=== PATIENT | male | born 1990 | race Caucasian/White ===

== ENCOUNTER 2016-10-29 21:07 | Emergency (ER) | payer OTHER ==
[~2016-10-29 21:07] MED LIST: IBUPROFEN600 MG PO; NORCO1 TA1 PO
--- NOTE | 2016-10-30 00:05 | ED NURSING NOTES ---
Clinical Report - Nurses [facility] [address] [place] [address] 10/29/2016 21:08 Patient: KIMBERLY KRAUS TRIAGE Triage time 21:Oct 29 2016. Acuity: LEVEL 4. Chief Complaint: INJURY TO RIGHT HAND. Alert. No acute distress. SEPSIS SCREEN: Sepsis Screen. Negative (no infection suspected/documented). LETTY COMA SCORE: [place] Coma Scale: 15- eyes open spontaneously (4); best verbal response- oriented x 4 (5); best motor response- obeys commands (6). --21:16 Amber Dan R.N. 21:11 10/29/16. BP: 139/70. HR: 97. RR: 17. O2 saturation: 100%. Temp: 99 F. Pain level now: 09/30. --21:16 Amber Dan R.N. Weight: 65.7 kg stated. Height/Length: 68 inches Per Patient. BMI: 22. --21:13 Amber Dan R.N. Medications None. --21:14 Amber Dan R.N. Allergies Penicillins. --21:14 Amber Dan R.N. History Arrived by private vehicle. Historian: patient. This occurred just prior to arrival. He sustained a laceration (pt while cutting wood with hatchet missed the wood and cut his right index finger). Treatment FILAMENT CUTTER: None. PAST MEDICAL HX: Tetanus status: up-to-date. Immunizations: up-to-date. SOCIAL HX: Heavy tobacco smoker (cigarette)- 1 pack per day. Alcohol use; consumes beer occasionally and liquor occasionally. History of drug use: marijuana. No infectious disease exposure. ABUSE ASSESSMENT: No report of abuse. SELF HARM ASSESSMENT: A self harm assessment was performed. The patient answered "no" to the question "Have you recently felt down, depressed, or hopeless?", "Have you noticed less interest or pleasure in doing things?", "Do you have thoughts of harming or killing yourself?", "Are you here because you tried to hurt yourself?", "Have you ever tried to hurt yourself before today?", "Have you recently had thoughts about harming or killing others?" and "Do you have any dangerous items in your possession?". FALL RISK ASSESSMENT: Fall risk assessment completed. No fall risk identified. NUTRITIONAL RISK ASSESSMENT: The nutritional risk assessment revealed no deficiencies. FUNCTIONAL ASSESSMENT: Functional assessment: no impairments noted. LEARNING NEEDS ASSESSMENT: The learning needs assessment revealed no barriers. SKIN INTEGRITY ASSESSMENT: Skin integrity risk assessment completed. No skin integrity risk identified. --21:16 Amber Dan R.N. PROBLEMS: Laceration. --21:15 Amber Dan R.N. ADDITIONAL SURGERIES: Left arm arterial repair. --21:15 Amber Dan R.N. Interventions ID band on patient. To treatment room. --21:16 Amber Dan R.N. PHYSICAL ASSESSMENT Ambulatory to room. Patient gowned. GENERAL / NEURO / PSYCH: Oriented X 4. Alert. Appears in no acute distress. EXTREMITIES: Capillary refill is less than 2 seconds in the extremities. Extremity pulses are within normal limits. Neuro-vascular status intact to the extremity. Right index finger: laceration with controlled bleeding. SKIN: Skin is warm and dry. --21:17 Amber Dan R.N. NURSING PROGRESS NOTES Patient identifiers checked. Call light placed in reach. Side rails up x 1. Bed placed in lowest position. Brakes of bed on. Patient waiting for evaluation. --21:18 Amber Dan R.N. ( pt out to nurses station-pt updated on time frame- waiting MD to suture.). --22:53 Amber Dan R.N. Call light placed in reach. Bed placed in lowest position. Brakes of bed on. --22:53 Amber Dan R.N. ( MD at bedside suturing). --23:32 Amber Dan R.N. WOUND REPAIR: Wound repair performed by ED physician. Assisted by one tech. The wound is located on the right index finger. Preparation: suture tray set-up with 2% lidocaine. Wound cleansed per tech with Hibiclens and irrigated with 250 mL sterile saline using a syringe. Procedure: wound repaired with sutures. Post-procedure: no complications, bleeding controlled, neuro-vascular status intact distal to wound and dressing applied. --00:01 Amber Dan R.N. Patient waiting for disposition. --00:02 Amber Dan R.N. DISPOSITION / DISCHARGE The patient left prior to discharge education being provided. The patient was discharged by the physician. ( pts room empty, gown on [facility], pt last seen in room with friend when EDT was dressing wound). --00:11 Amber Dan R.N. Locked/Released at 10/30/2016 0:12 by Amber Dan R.N.
--- NOTE | 2016-10-30 00:05 | ED CLINICAL REPORT ---
Clinical Report - Physicians/Mid Levels [facility] [address] [place] [address] 10/29/2016 21:08 Patient: KIMBERLY KRAUS Time Seen: 21:14. Arrived- By private vehicle. Historian- patient. HISTORY OF PRESENT ILLNESS Chief Complaint: Injury to the right hand and index finger. The injury happened just prior to arrival. The patient sustained a laceration from a sharp edge and blunt force (while cutting wood with hatchet missed the wood and cut his right index finge[place] Patient is experiencing mild pain. No other injury. REVIEW OF SYSTEMS The patient sustained a single laceration to the right hand and right index finger. No swelling, tingling, numbness or weakness. All systems otherwise negative, except as recorded above. PAST HISTORY The patient's dominant hand is the left. Tetanus immunization status is up-to-date. SOCIAL HISTORY Current every day heavy tobacco smoker (cigarette)- 1 pack per day. Alcohol use; consumes beer occasionally and liquor occasionally. History of occasional drug use: marijuana. Residence: [place] his grilfriend he is homeless. FAMILY HISTORY No significant family medical history. ADDITIONAL NOTES The nursing notes have been reviewed. PHYSICAL EXAM Vital Signs: 10/29/2016 21:11 BP: 139/70. HR: 97. RR: 17. O2 saturation: 100%. Temp: 99 F. Pain level now: 4/10. Have been reviewed. Appearance: Alert. Head: Head atraumatic. Eyes: Pupils equal, round and reactive to light. ENT: Pharynx normal. Neck: Normal inspection. Neck supple. CVS: Normal heart rate and rhythm. Heart sounds normal. Respiratory: No respiratory distress. Breath sounds normal. Abdomen: No visible injury. Soft and nontender. Bowel sounds normal. No organomegaly. No mass. Back: Normal inspection. Skin: Skin warm and dry. Extremities: Right index finger: subcutaneous 5.0 cm laceration of the proximal phalanx- SEE LACERATION PROCEDURE NOTE #1. Neurovascular intact distally. No limitation in movement. Extremities otherwise negative. Neuro, Vascular and Tendons: Vascular status intact. Sensation intact. Motor intact. Tendon function intact. PROGRESS AND PROCEDURES Laceration Repair: Location: right hand and right index finger. Time-out completed immediately before the procedure. Length: 5.0cm. Complexity: simple (local anesthesia used and sutured). Wound depth/shape- flap-like. Wound is clean. Distal neuro/vascular/tendon status normal. Local anesthesia provided using 2% lidocaine no epi. Prepped with Betadine and chlorhexidine. Wound explored and cleansed extensively. Closure of superficial layer: interrupted 4-0 nylon (12 sutures). Post-procedure: he is stable and there are no complications. Bleeding is controlled and neuro-vascular status is intact distal to the wound. Dressing applied. Tetanus immunization up-to-date. Course of Care: Patient is stable. Patient/family counseled. Old medical records reviewed. Disposition: Discharged. Condition: stable. CLINICAL IMPRESSION Single deep laceration to the right hand. INSTRUCTIONS Protect wound and keep wound area clean. Change dressing twice daily. You may wash wounds briefly, then dry. Apply neosporin twice daily. Sutures/bill should be removed in ten days. Limit use of your hand. Warnings: COMPLICATIONS: Complications from this condition include: possible infection, possible foreign body remaining in the wound, possible injury to a nerve, possible injury to a tendon and possible injury to a ligament. Future problems may include infection, scarring, loss of function, pain and deformity. INFECTION: Watch for signs of infection (increasing heat and redness, pus-like drainage, swelling, or increased pain). Return or see your doctor if these signs occur. It is important to follow up with a physician for further evaluation and treatment. GENERAL WARNINGS: Return or contact your physician immediately if your condition worsens or changes unexpectedly, if not improving as expected, or if other problems arise. Follow-up: Follow up with your doctor in ten days for suture removal. Understanding of the discharge instructions verbalized by patient. (Electronically signed by Mohsen Cardoza MD 10/30/2016 9:34)
--- NOTE | 2016-10-30 00:05 | ED NURSING NOTES ---
Clinical Report - Nurses [facility] [address] [place] [address] 10/29/2016 21:08 Patient: KIMBERLY KRAUS TRIAGE Triage time 21:Oct 29 2016. Acuity: LEVEL 4. Chief Complaint: INJURY TO RIGHT HAND. Alert. No acute distress. SEPSIS SCREEN: Sepsis Screen. Negative (no infection suspected/documented). LETTY COMA SCORE: [place] Coma Scale: 15- eyes open spontaneously (4); best verbal response- oriented x 4 (5); best motor response- obeys commands (6). --21:16 Amber Dan R.N. 21:11 10/29/16. BP: 139/70. HR: 97. RR: 17. O2 saturation: 100%. Temp: 99 F. Pain level now: 09/30. --21:16 Amber Dan R.N. Weight: 65.7 kg stated. Height/Length: 68 inches Per Patient. BMI: 22. --21:13 Amber Dan R.N. Medications None. --21:14 Amber Dan R.N. Allergies Penicillins. --21:14 Amber Dan R.N. History Arrived by private vehicle. Historian: patient. This occurred just prior to arrival. He sustained a laceration (pt while cutting wood with hatchet missed the wood and cut his right index finger). Treatment BED BUG EXTERMINATOR: None. PAST MEDICAL HX: Tetanus status: up-to-date. Immunizations: up-to-date. SOCIAL HX: Heavy tobacco smoker (cigarette)- 1 pack per day. Alcohol use; consumes beer occasionally and liquor occasionally. History of drug use: marijuana. No infectious disease exposure. ABUSE ASSESSMENT: No report of abuse. SELF HARM ASSESSMENT: A self harm assessment was performed. The patient answered "no" to the question "Have you recently felt down, depressed, or hopeless?", "Have you noticed less interest or pleasure in doing things?", "Do you have thoughts of harming or killing yourself?", "Are you here because you tried to hurt yourself?", "Have you ever tried to hurt yourself before today?", "Have you recently had thoughts about harming or killing others?" and "Do you have any dangerous items in your possession?". FALL RISK ASSESSMENT: Fall risk assessment completed. No fall risk identified. NUTRITIONAL RISK ASSESSMENT: The nutritional risk assessment revealed no deficiencies. FUNCTIONAL ASSESSMENT: Functional assessment: no impairments noted. LEARNING NEEDS ASSESSMENT: The learning needs assessment revealed no barriers. SKIN INTEGRITY ASSESSMENT: Skin integrity risk assessment completed. No skin integrity risk identified. --21:16 Amber Dan R.N. PROBLEMS: Laceration. --21:15 Amber Dan R.N. ADDITIONAL SURGERIES: Left arm arterial repair. --21:15 Amber Dan R.N. Interventions ID band on patient. To treatment room. --21:16 Amber Dan R.N. PHYSICAL ASSESSMENT Ambulatory to room. Patient gowned. GENERAL / NEURO / PSYCH: Oriented X 4. Alert. Appears in no acute distress. EXTREMITIES: Capillary refill is less than 2 seconds in the extremities. Extremity pulses are within normal limits. Neuro-vascular status intact to the extremity. Right index finger: laceration with controlled bleeding. SKIN: Skin is warm and dry. --21:17 Amber Dan R.N. NURSING PROGRESS NOTES Patient identifiers checked. Call light placed in reach. Side rails up x 1. Bed placed in lowest position. Brakes of bed on. Patient waiting for evaluation. --21:18 Amber Dan R.N. ( pt out to nurses station-pt updated on time frame- waiting MD to suture.). --22:53 Amber Dan R.N. Call light placed in reach. Bed placed in lowest position. Brakes of bed on. --22:53 Amber Dan R.N. ( MD at bedside suturing). --23:32 Amber Dan R.N. WOUND REPAIR: Wound repair performed by ED physician. Assisted by one tech. The wound is located on the right index finger. Preparation: suture tray set-up with 2% lidocaine. Wound cleansed per tech with Hibiclens and irrigated with 250 mL sterile saline using a syringe. Procedure: wound repaired with sutures. Post-procedure: no complications, bleeding controlled, neuro-vascular status intact distal to wound and dressing applied. --00:01 Amber Dan R.N. Patient waiting for disposition. --00:02 Amber Dan R.N. DISPOSITION / DISCHARGE The patient left prior to discharge education being provided. The patient was discharged by the physician. ( pts room empty, gown on [facility] [place], pt last seen in room with friend when EDT was dressing wound). --00:11 Amber Dan R.N. Locked/Released at 10/30/2016 0:12 by Amber Dan R.N.
--- NOTE | 2016-10-30 09:34 | ED MAR SUMMARY ---
..... Medication Administration Record [facility] [address] [place], [place] [id number] Patient: KIMBERLY KRAUS Visit ID: [id number] 26y, M Weight: 65.7 kg Height/Length: 68 in BMI: 22 ALLERGIES: Penicillins
--- NOTE | 2016-10-30 09:34 | ED MAR SUMMARY ---
..... Medication Administration Record [facility] [address] [place], [place] [id number] Patient: KIMBERLY KRAUS Visit ID: [id number] 26y, M Weight: 65.7 kg Height/Length: 68 in BMI: 22 ALLERGIES: Penicillins
--- NOTE | 2016-10-30 09:34 | ED MED RECONCILIATION SUMMARY ---
Patient: KIMBERLY KRAUS Medication Reconciliation Report [facility] VisitID: [id number] [address] [place] [place] [address] 26y, M Registration Date/Time: 10/29/2016 Weight: 65.7 kg Height/Length: 68 in. BMI: 22.0 ALLERGIES: Penicillins The patient's Home Medications are listed below: NONE. The source(s) of the original Home Medication information: Not obtained. The following Medications were given to the patient in the Emergency Department: None. The following Medications were prescribed to the patient: None.
--- NOTE | 2016-10-30 09:34 | ED DISCHARGE INSTRUCTIONS ---
Patient: KIMBERLY KRAUS General Instructions [facility] VisitID: [id number] [place] [address] 26y, M Registration Date/Time: 10/29/2016 Single deep laceration to the right hand. INSTRUCTIONS Protect wound and keep wound area clean. Change dressing twice daily. You may wash wounds briefly, then dry. Apply neosporin twice daily. Sutures/bill should be removed in ten days. Limit use of your hand. Warnings: COMPLICATIONS: Complications from this condition include: possible infection, possible foreign body remaining in the wound, possible injury to a nerve, possible injury to a tendon and possible injury to a ligament. Future problems may include infection, scarring, loss of function, pain and deformity. INFECTION: Watch for signs of infection (increasing heat and redness, pus-like drainage, swelling, or increased pain). Return or see your doctor if these signs occur. It is important to follow up with a physician for further evaluation and treatment. GENERAL WARNINGS: Return or contact your physician immediately if your condition worsens or changes unexpectedly, if not improving as expected, or if other problems arise. Follow-up: Follow up with your doctor in ten days for suture removal. Understanding of the discharge instructions verbalized by patient. ADDITIONAL INFORMATION Laceration, Extremity (Sutures, [place], Or Tape) A laceration is a cut through the skin. This will usually require stitches (sutures) or bill if it is deep. Minor cuts may be treated with surgical tape closures. Home care The following guidelines will help you care for your laceration at home: Keep the wound clean and dry. If a bandage was applied and it becomes wet or dirty, replace it. Otherwise, leave it in place for the first 24 hours, then change it once a day or as directed. If stitches or bill were used, clean the wound daily: After removing the bandage, wash the area with soap and water. Use a wet cotton swab to loosen and remove any blood or crust that forms. After cleaning, keep the wound clean and dry. Talk with your doctor before applying any antibiotic ointment to the wound. Reapply the bandage. You may remove the bandage to shower as usual after the first 24 hours, but do not soak the area in water (no swimming) until the stitches or bill are removed. If surgical tape closures were used, keep the area clean and dry. If it becomes wet, blot it dry with a towel. The doctor may prescribe an antibiotic cream or ointment to prevent infection. Do not stop taking this medication until you have finished the prescribed course or the doctor tells you to stop. The doctor may also prescribe medications for pain. Follow the doctors instructions for taking these medications. If you have chronic liver or kidney disease or ever had a stomach ulcer or GI bleeding, talk with your doctor before using these medicines. Follow-up care Follow up with your health care provider. Most skin wounds heal within ten days. However, an infection may sometimes occur despite proper treatment. Therefore, check the wound daily for the signs of infection listed below. Stitches and bill should be removed within 714 days. If surgical tape closures were used, you may remove them after 10 days, if they have not fallen off by then. Notify your doctor if you notice persistent numbness or weakness in the injured extremity. (Note:A radiologist will review any X-rays that were taken. We will notify you of any new findings that may affect your care.) When to seek medical care Get prompt medical attention if any of these occur: Increasing pain in the wound Redness, swelling, or pus coming from the wound Fever of 100.4F (38C) or higher, or as directed by your health care provider If stitches or bill come apart or fall out before your next appointment If the surgical tape closures fall off within seven days, or the wound edges re-open Bleeding not controlled by direct pressure Bandage Change If the bandage becomes wet or dirty, replace it. Otherwise, leave it in place for the first 24 hours. Then once a day: After removing the bandage, wash the area with soap and water. Use a wet cotton swab to loosen and remove any blood or crust that forms on the wound. After cleaning, apply a thin layer of antibiotic ointment or cream. Reapply the bandage. You may shower as usual after the first 24 hours. If the bandage is on an arm or leg, cover it with a plastic bag rubber banded at both ends before showering. No tub baths or swimming until the bandage is removed and the wound healed (at least 7 days). Laceration, Extremity (Sutures, [place], Or Tape) A laceration is a cut through the skin. This will usually require stitches (sutures) or bill if it is deep. Minor cuts may be treated with surgical tape closures. Home care The following guidelines will help you care for your laceration at home: Keep the wound clean and dry. If a bandage was applied and it becomes wet or dirty, replace it. Otherwise, leave it in place for the first 24 hours, then change it once a day or as directed. If stitches or bill were used, clean the wound daily: After removing the bandage, wash the area with soap and water. Use a wet cotton swab to loosen and remove any blood or crust that forms. After cleaning, keep the wound clean and dry. Talk with your doctor before applying any antibiotic ointment to the wound. Reapply the bandage. You may remove the bandage to shower as usual after the first 24 hours, but do not soak the area in water (no swimming) until the stitches or bill are removed. If surgical tape closures were used, keep the area clean and dry. If it becomes wet, blot it dry with a towel. The doctor may prescribe an antibiotic cream or ointment to prevent infection. Do not stop taking this medication until you have finished the prescribed course or the doctor tells you to stop. The doctor may also prescribe medications for pain. Follow the doctors instructions for taking these medications. If you have chronic liver or kidney disease or ever had a stomach ulcer or GI bleeding, talk with your doctor before using these medicines. Follow-up care Follow up with your health care provider. Most skin wounds heal within ten days. However, an infection may sometimes occur despite proper treatment. Therefore, check the wound daily for the signs of infection listed below. Stitches and bill should be removed within 714 days. If surgical tape closures were used, you may remove them after 10 days, if they have not fallen off by then. Notify your doctor if you notice persistent numbness or weakness in the injured extremity. (Note:A radiologist will review any X-rays that were taken. We will notify you of any new findings that may affect your care.) When to seek medical care Get prompt medical attention if any of these occur: Increasing pain in the wound Redness, swelling, or pus coming from the wound Fever of 100.4F (38C) or higher, or as directed by your health care provider If stitches or bill come apart or fall out before your next appointment If the surgical tape closures fall off within seven days, or the wound edges re-open Bleeding not controlled by direct pressure Laceration: Will There Be A Scar? A laceration is a cut through one or more layers of the skin. The goal of emergency treatment is to clean the wound and close it to prevent infection, control bleeding and speed healing. Cuts heal because the body is able to repair the skin by "sealing" the edges together with collagen, a kind of "skin cement." How deep your cut is, its location on your body, your age and the way your skin heals all determine how visible the final scar will be. Some persons tend to heal with more scar tissue than others. This cut will probably heal similar to other cuts you have had in the past. What You Can Do: There are a few simple things that you can do to limit the amount of scar that forms: 1) PREVENT INFECTION: An infected wound makes a bigger scar. Keep the wound clean and dry. Change the dressing and apply any ointment/cream as directed. 2) MASSAGE THE WOUND:After the stitches have been removed: Use a moisturizing cream or lotion containing Aloe or Vitamin E Oil and gently massage the skin around the wound with your fingertips (wash your hands first!). Do this twice a day for the first two weeks, then once a day for a month. This will increase the flow of oxygen and blood to the wound and prevent excess scar tissue from building up. 3) AVOID SUN EXPOSURE: During the first six months, avoid sun exposure since the scar may hammond a much darker color than the skin around it. When in the sun, use SPF #50 (or greater) sun block on the scar, or cover the area with a hat or clothing. What To Expect: -- The cut will be sealed within 2 days and will be strong within 5-10 days. However, it will take at least SIX MONTHS for it to be fully healed. -- During the FIRST THREE MONTHS, you may notice the scar line getting more red or purple in color. The scar may become raised. The skin around the wound may feel thick and lumpy. -- During the FOURTH TO SIXTH MONTHS, this process begins to reverse. The red and purple color will fade, the scar line flattens, and the skin around it feels more normal. -- In most cases, the way the scar line looks after six months is the way it will remain, although there may be some continued improvement up to one year after the injury. Is There Anything Else That Can Be Done? If you do not like the way the scar looks after six months, a plastic surgeon may be able to perform a "scar revision." If you have any questions or problems as your wound heals, contact your doctor or this facility. We will be glad to assist you. You have been given the following additional information: Laceration, Extrem (Suture, Staple, Or Tape) Dressing Change Laceration, Extrem (Suture, Staple, Or Tape) Laceration, How To Minimize Scar Limit use of your hand. (Electronically signed by Mohsen Cardoza MD 10/30/2016 9:34)
--- NOTE | 2016-10-30 09:34 | ED MED RECONCILIATION SUMMARY ---
Patient: KIMBERLY KRAUS Medication Reconciliation Report [facility] VisitID: [id number] [address] [place] [address] 26y, M Registration Date/Time: 10/29/2016 Weight: 65.7 kg Height/Length: 68 in. BMI: 22.0 ALLERGIES: Penicillins The patient's Home Medications are listed below: NONE. The source(s) of the original Home Medication information: Not obtained. The following Medications were given to the patient in the Emergency Department: None. The following Medications were prescribed to the patient: None.
== END 2016-10-30 00:17 | disposition home or self-care (01) ==
LOC: ED SRH 21:07
PROC: 0HQFXZZ Repair Right Hand Skin, External Approach (ICD-10-PCS; principal; 2016-10-29)
DX: S61.411A Laceration without foreign body of right hand, initial encounter (principal); W27.0XXA Contact with workbench tool, initial encounter; Y92.828 Other wilderness area as the place of occurrence of the external cause; Z59.0 Homelessness; F17.210 Nicotine dependence, cigarettes, uncomplicated; Z88.0 Allergy status to penicillin